=== PATIENT | male | born 1955 | race Caucasian/White ===

== ENCOUNTER 2018-05-12 20:01 | Inpatient (IN) | payer OTHER ==
--- NOTE | 2018-05-12 20:12 | EDPHY ---
H & P Time Seen by Provider: 05/12/18 20:12 Constitutional: Initial Vital Signs Temperature (C) 36.7 C 05/12/18 20:05 Heart Rate 69 05/12/18 20:05 Respiratory Rate 18 05/12/18 20:05 Blood Pressure 149/80 H 05/12/18 20:05 O2 Sat (%) 95 05/12/18 20:05 O2 Delivery Mode Room Air Allergies/Adverse Reactions: Phenothiazines Allergy (Verified 05/12/18 20:24) Home Medications: Medication Instructions Recorded Ascorbic Acid [Vitamin C 500 mg 500 mg PO DAILY 05/13/18 (*)] Gabapentin [Neurontin 100 MG (*)] 100 mg PO BID 05/13/18 Herbals/Supplements -Info Only 1 ea PO DAILY 05/13/18 LORazepam [Ativan (*)] 1 mg PO TID PRN 05/13/18 Morven-3 Fatty Acids [Fish Oil 1000 1,000 mg PO DAILY 05/13/18 mg (*)] buPROPion [Wellbutrin] 100 mg PO DAILY 05/13/18 clonIDINE [Catapres (*)] 0.1 mg PO BID PRN 05/13/18 Medical Decision Making - Diagnostics EKG Interpretation: EKG: Complete interpretation has been separately recorded in the [facility] archive. Summary impression: Sinus rhythm, rate 56, no ischemic changes noted (Aubrey Everett) ED Course/Re-evaluation: CHIEF COMPLAINT: Mental health issues HISTORY OF PRESENT ILLNESS: The patient is a homeless 63 y/o male with longstanding psychiatric history arriving with his family for evaluation of declining mental health. His sister at bedside says he is homeless and is "in a fragile state." She says he's been in a "downward spiral since gi after a Ketamine overdose." He's had frequent suicidal thoughts and had insomnia for at least the last several days. It sounds like he's been off most of his psychiatric medications, stating, "it's bad for me." He says he last took his benzodiazepines 2 days ago. No report of recent trauma or illness. Denies recent ingestions of drugs or alcohol. History comes primarily from his sister. REVIEW OF SYSTEMS: A comprehensive 10 system review of systems is otherwise negative aside from elements mentioned in the history of present illness and medical decision making. PHYSICAL EXAM: HR, BP, O2 Sat, RR. Temp noted General Appearance: Alert, mumbling but able to answer questions, tremulous. Head: Atraumatic without scalp tenderness or obvious injury Eyes: Pupils equal, round, reactive to light and accommodation, EOMI, no trauma , no injection. Nose: Atraumatic, no rhinorrhea, clear. Throat: Mucus membranes moist. Neck: Supple. Respiratory: No retractions, no distress, no wheezes, and no accessory muscle use. Lungs are clear to auscultation bilaterally. Cardiovascular: Regular rate and rhythm, no murmurs, rubs, or gallops. Good capillary refill all extremities. Gastrointestinal: Abdomen is soft, nontender, non-distended, no masses, no rebound, no guarding, no peritoneal signs. Musculoskeletal: Normal active ROM of all extremities, atraumatic. Neurological: Alert, answering questions, and interactive. Nonfocal. Tremulous. Skin: No rashes, good turgor, no nodules on palpation. Past medical history: Bipolar disorder, suicidality Past surgical history: Noncontributory Family history: Noncontributory Social history: Homeless. Family at bedside. Unemployed DIFFERENTIAL DIAGNOSIS: The differential diagnosis for the patient's depression included but was not limited to medication withdrawal, bipolar disorder, functional and major depression, situational depression, medication side effect, drugs, and alcohol abuse. MEDICAL DECISION MAKING: This is a 63 y/o male with a longstanding history of psychiatric illness with acute symptoms worsening since . He abruptly stopped all of his medications sometime in the last few days-weeks. He is currently tremulous and mumbling, but able to answer questions. No visible trauma. Patient appears to be withdrawing as well as in a psychiatric crisis. Plan for standard psychiatric labs and mental health evaluation. Labs unremarkable. Trazodone ordered. Plan for mental health evaluation in morning after he has slept. (Emile Barrios) 0700AM: No acute events overnight. Patient did receive Zyprexa 10 mg times. Plan for mental health evaluation this morning. Patient signed over at 7:[address] Everett. 0656: Patient somewhat yelling in the emergency room appears somewhat agitated. I have ordered the patient 1 mg p.o. Ativan. (Tej Dwyer) Other Provider: I assumed care of the patient at 7:00 a.m. in the morning. The patient was medically cleared for psychiatric evaluation. 2:15 p.m.: The patient has been accepted for inpatient psychiatric hospitalization by Dr. Fried. I have filled out the [facility] transfer form. (Aubrey Everett) 3:45 p.m. the patient got agitated when told that he was going to be admitted to [address] [place] [address]. He said he did not want to go. There is some debate about whether not the the he required admission because he is not on a hold. Mental health workers and Dr. Fried feel that he would benefit from admission and they asked that we give him Ativan to try and help him calm down and then the reassess in about 30 min whether not he can go to [address] [place] [address]. 5:30 p.m. The patient has been placed on an M1 hold written by [facility]. I have signed it. He will be transferred to [address] [place] [address]. (Ean Banda) - Data Points Laboratory Results: Laboratory Results 05/12/18 20:25 05/12/18 20:25 05/13/18 05:11 Urine Opiates Screen NEGATIVE (NEGATIVE) Urine Barbiturates NEGATIVE (NEGATIVE) Ur Phencyclidine Scrn NEGATIVE (NEGATIVE) Ur Amphetamine Screen NEGATIVE (NEGATIVE) U Benzodiazepines Scrn NEGATIVE (NEGATIVE) Urine Cocaine Screen NEGATIVE (NEGATIVE) U Marijuana (THC) Screen NON-NEGATIVE H (NEGATIVE) Medications Given: Discontinued Medications Sodium Chloride (Ns) 1,000 mls @ 0 mls/hr IV EDNOW ONE; Wide Open PRN Reason: Protocol Stop: 05/12/18 20:37 Last Admin: 05/12/18 20:37 Dose: 1,000 mls Sodium Chloride (Ns) 1,000 mls @ 0 mls/hr IV EDNOW ONE; Wide Open PRN Reason: Protocol Stop: 05/12/18 21:40 Last Admin: 05/12/18 21:40 Dose: 1,000 mls Lorazepam (Ativan) 1 mg PO ONCE ONE Stop: 05/13/18 06:49 Last Admin: 05/13/18 07:12 Dose: 1 mg Lorazepam (Ativan) 2 mg PO EDNOW ONE Stop: 05/13/18 15:47 Last Admin: 05/13/18 16:00 Dose: 1 mg Olanzapine (Olanzapine) 10 mg PO ONCE ONE Stop: 05/13/18 02:08 Last Admin: 05/13/18 02:14 Dose: Not Given Olanzapine (Zyprexa Injection) 10 mg IM EDNOW ONE Stop: 05/13/18 02:14 Last Admin: 05/13/18 02:15 Dose: 10 mg Trazodone HCl (Trazodone) 50 mg PO EDNOW ONE Stop: 05/12/18 21:01 Last Admin: 05/12/18 21:12 Dose: 50 mg Trazodone HCl (Trazodone) 50 mg PO EDNOW ONE Stop: 05/12/18 21:37 Last Admin: 05/12/18 22:44 Dose: 50 mg Departure - Departure Disposition: [facility] IP Clinical Impression: Bipolar 1 disorder Condition: Good Referrals: NONE *PRIMARY CARE P,. [Primary Care Provider] - As per Instructions Report Scribed for: Emile Barrios Report Scribed by: Rachel Alcala Date of Report: 05/12/18 Time of Report: 20:13
[2018-05-12] MEDS ORDERED: NS 1,000 ML IV ONE ×2 (20:36→21:39)
[2018-05-12 20:39] LABS: PLATELET COUNT 272 10^3/uL (150-400)
[2018-05-12] MEDS ORDERED: traZODone 50 MG TAB PO ONE ×2 (21:00→21:36)
[2018-05-13] MEDS ORDERED: OLANZapine 5 MG TAB PO ONE (02:07)
[2018-05-13] MEDS ORDERED: OLANZapine 10 MG/2 ML VIAL ONE (02:08)
[2018-05-13] MEDS ORDERED: OLANZapine 10 MG/2 ML VIAL IM ONE (02:13)
[2018-05-13] MEDS ORDERED: LORazepam 1 MG TAB PO ONE ×2 (06:48→15:46)
--- NOTE | 2018-05-13 11:38 | ASMTTLCEVL ---
[facility] Evaluation - Basic Information Evaluation Start Date and 05/13/2018 05:45 AM Time Hospital Status Answers: Voluntary Patient statement Notes: "I can't talk. I'm too tired. I don't know what to tell you. I dont know what's going on. I don't want to go there. I'm hysterical." Narrative Notes: The patient is a 63 y/o male, single, with a hx of Bipolar Disorder. He is homeless and living in [place]. The patient arrived to [facility] ED voluntarily with his sister and friends. He is reportedly "detoxing from Ativan." The patient presented with echolalia and dramatic speech; some observed psychomotor agitation. The patient expressed difficulty participating in the evaluation. He seemed to easily be overwhelmed resulting in hyperventilation. The patient is observed shaking, in a position, and occasionally whimpers. The patient reported that he has not slept for multiple days possibly weeks although he was unable to clarify the duration. According to Tobi, the patient has been staying with Tobi for the past three weeks. He has known the patient for four years. His behavior and daily functioning have deteriorated in the past few months. He has been living in the "back of his car." He has no problem "misrepresenting" and "outright lying." He recently received $100,000 inheritance that he spent within one month; he gave the money to friends and family. He originally started Ativan in the 90's to treat anxiety and reduce thc use. He continues to use thc daily. He suspected that the patient pursued "ketamine" treatment; "possible abuse." He received a 30 day prescription for Gabapentin and Wellbutrin following inpatient hospitalization over in [place]; since ceased. According to Cullen, the patient was experimenting with an anti-addiction treatment via [employer], "Kambo;" which includes a ritual practice. 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 He was presenting as delusion, incoherent, and psychotic at the time of the hospital admission. The patient drove himself to [place] to have dinner with his sister; "he was crying, whimpering, agitated, stating that 'he was going to end it all. This will be the last time I see you.'" Diagnosis History Notes: The patient has a diagnostic hx of Bipolar Disorder. Prior suicide attempts Notes: The patient reported that he tried to "hang" himself at 23 y/o. Prior hospitalizations Notes: The patient endorsed previous hospitalizations although he was unable to elaborate. According to Tobi, he was hospitalized in [place] over . Treatment Responses Notes: Unable to assess History of violence Notes: The patient denied any homicidal ideation or previous hx of violence. Therapist: Magdalena Park Psychiatrist: None Medications (name, dosage, route, freq uency) Notes: None Allergies/Reaction Notes: No known allergies Sleep Notes: The patient reported that he has not slept for multiple days possibly weeks although he was unable to clarify the duration. Appetite Notes: The patient yelled, "STOP IT." Medical/Surgical history Notes: The patient's medical/surgical hx is unknown. Substance use history (frequency, intensity, his tory, duration) Notes: The patient's substance use hx is unknown. Family composition Notes: The patient's family composition is unknown. He came to the [facility] ED voluntarily accompanied by his sister, Cullen Sánchez. Need for family Answers: Yes participation in patient's care Family psychiatric/substance abuse history Notes: The patient's family psychiatric/substance abuse hx is unknown. Developmental history Notes: The patient's developmental hx is unknown. Abuse concerns Answers: None Marital status/children Notes: The patient is "single without children." Living situation Notes: The patient is "homeless;" most recently living in "[place]." According to Tobi, he was "kicked out" of his apartment in early March. Sexual history/orientation Notes: The patient's sexual hx is unknown. Peer support/family strengths Notes: The patient's peer support/family strengths are unknown. Education level/history Notes: The patient's education hx is unknown. Work history Notes: The patient's work hx unknown. Notes: no known affiliation Legal Notes: The patient's legal hx unknown. Religion/Spiritual Notes: The patient reported none that would interfere with treatment. Leisure Notes: The patient's leisure activity is unknown. Collateral Notes: The collateral data was obtained from current and previous [facility] ed records/staff, and friends: Tobi, and family members: Cullen Sánchez. Patient's strengths Answers: Good Friend to Others (Please select at least TWO strengths): Supportive Family TLC Evaluation - Mental Status Exam Appearance: Answers: Unclean Unkempt Eye Contact: Answers: Avoiding Mood: Answers: Elevated Irritable Labile Affect: Answers: Anxious Fearful Guarded Nervous Behavior: Answers: Appropriate Cooperative Anxious Fearful Restless Speech: Answers: Relevant Logical Clear Dramatic Perseverating Pressured Thought Process: Answers: Organized Oriented Insight: Answers: Poor Judgement: Answers: Fair Manic Signs/Symptoms Answers: Distractibility Impulsivity Irritability Pressured Speech Spending Sprees Depression Answers: Hopelessness Signs/Symptoms: Anxiety Signs/Symptoms Answers: Generalized Anxiety Hallucinations: Answers: None Current Stage of Change Answers: Precontemplation Pt reported to have Answers: No suicidal/self-injuring ideation/behavior? Pt reported to be making Answers: No suicidal/self-injuring threats? Pt reported to have Answers: No aggression/assault ideation/behavior? Pt exhibits inability to Answers: No care for self/grave disability? Ideation/behavior is Answers: No chronic? Patient has a specific Answers: No plan? Pt has access to means to Answers: No execute the plan? Ideation involves Answers: No serious/lethal intent? Ideation has Answers: No delusional/hallucinatory content? History of Answers: Yes suicidal/self-injuring ideation, behavior, or threats? History of Answers: No aggressive/assaultive ideation, behavior, or threats? History of serious Answers: No physical harm to self/others while in treatment setting? [facility] Evaluation - Suicide/Homicide Risk Suicide Risk Factors: Answers: < 20 or > 40 Years of Age Alcohol/Heavy Drug Use Anxiety/Panic, Severe Bipolar Disorder Financial Difficulties Prior Suicide Attempt(s) Recent of Loved One Single Unstable Living Situation Homicide/violence risk Answers: Heavy Drug Use factors: Current Suicidal Answers: No Ideation? Current Suicidal Ideation Answers: Yes in the Past 48 Hours? Current Suicidal Ideation Answers: Yes in the Past Month? Suicide Internal Answers: Absence of Psychosis Protective Factors: Suicide External Answers: Positive Therapeutic Protective Factors: Relationships Social Support Ranking of patient's Answers: Low suicidal risk: Ranking of patient's Answers: Low homicidal risk: TLC Evaluation - Wrap-up BDI Total Score: N/A BDI Question #2 Score: N/A BDI Question #9 Score: N/A BSS Total Score: N/A AXIS I Diagnosis (include DSM-V and ICD-10 codes), must also be entered in [employer], which is the source of truth. Notes: Bipolar I Disorder, severe 296.43 (F31.13) Cannabis Use Disorder, severe 304.30 (F12.20) Evaluation End Date and 05/13/2018 11:30 AM Time (HH:MM): Date Signed: 05/13/2018 11:38 AM Electronically Signed By:Maribel Hannon
--- NOTE | 2018-05-13 14:12 | CPEKG ---
Test Reason : OPEN Blood Pressure : / mmHG Vent. Rate : 056 BPM Atrial Rate : 055 BPM P-R Int : 147 ms QRS Dur : 110 ms QT Int : 437 ms P-R-T Axes : 074 -64 036 degrees QTc Int : 422 ms Sinus rhythm Incomplete RBBB and LAFB Confirmed by Aubrey Everett ([id number]) on 05/13/2018 2:11:47 PM Referred By: Aubrey Everett Confirmed By:Aubrey Everett
[2018-05-13] MEDS ORDERED: buPROPion 100 MG TAB PO ONE (18:02)
[2018-05-13] MEDS ORDERED: GABAPENTIN 100 MG CAP PO ONE (18:02)
[2018-05-13] MEDS ORDERED: OLANZapine DISINTEGR 5 MG TAB PO PRN (21:16)
[2018-05-13] MEDS ORDERED: MELATONIN 3 MG TAB PO PRN (21:18)
[2018-05-13] MEDS ORDERED: MAG HYDROX/AL HYDROX/SIMETH 30 ML UDCUP PO PRN (21:19)
[2018-05-13] MEDS ORDERED: MAGNESIUM HYDROXIDE 30 ML UDCUP PO PRN (21:22)
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
[2018-05-14] MEDS: amLODIPine BESYLATE 5 MG TAB PO SCH (11:27)
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
--- NOTE | 2018-05-14 13:44 | ASMTCMCOM ---
CM Note CM Note Notes: Pt. and CC completed MTP, signed and placed in pt's chart. Pt. stated he does not want to return to living with Tobi in [facility]. Pt. stated he would prefer to live in [place] where it is more affordable. Pt. stated he has a "history of self medicating". Pt. stated he tried to "re-imprint self, unsuccessfully". Pt. stated he "felt great" while using Kambo. Pt. reports ketimine helping, but added it was over prescribed which caused him to overdoes on it. Pt. stated a former student, Roz, got into contact with him and he loaned her $40,000, which she has not offered to pay back. Pt. stated he does not want Roz discussing his treatment with the staff, but stated he doesn't mind talking to her. Pt. stated THC is "only thing that seems to calm me down", adding he has "been trying to get off it". Pt. reports feeling "ashamed" after he "squandered my mother's inheritance". Pt. stated he is the "black sheep of the family". Pt. stated he has been on disability since 1996. Pt. reports being "a complete wreck" when not using THC, and stated he "does well" when smoking THC. Pt. stated he "don't want to continue smoking pot" adding he would like a prescription for THC and CBD medications, which "will alleviate me from chronic smoking". Pt. has questions about being diagnosed with ketamine included psychosis, CC referred pt to speak with MD about. Pt. stated he has an EMDR therapist but does not want to continue working with her. Pt. reports seeing ASBEST[facility] HANDLER Anat Aaron at her [place] location. Pt. presents as alert, worried, tangential, lacking eye contact, easily distracted, apologizing often, and mostly cooperative. Staff report pt. sleeping 8 hours and refusing to take prescribed medication from hospitalist without his sister reviewing the medications. Date Signed: 05/14/2018 01:43 PM Electronically Signed By:Silvana Rader
[2018-05-14] MEDS: LORazepam 1 MG TAB PO PRN (16:44)
[2018-05-14] MEDS: GABAPENTIN 300 MG CAP PO SCH (20:57)
[2018-05-14] MEDS: MIRTAZAPINE 15 MG TAB PO SCH (20:57)
[2018-05-14] MEDS: NICOTINE POLACRILEX 2 MG GUM B PRN (20:57)
--- NOTE | 2018-05-15 03:43 | BAPA ---
[f rep st] ADMISSION PSYCHIATRIC ASSESSMENT CHIEF COMPLAINT: "I was detoxing from Ativan... I thought I was voluntary, but then they put me on a 72-hour hold because of something I said the day before... " HISTORY OF PRESENT ILLNESS: The patient is a 63-year-old male with a reported history of bipolar disorder, although the patient maintains he has been diagnosed with posttraumatic stress disorder and depression, also benzodiazepine addiction. He also endorses a long history of THC addiction and use of multiple different prescribed alternative treatments to treat his anxiety and addiction, including prescribed ketamine a few months ago, more recently an Amazonian frog toxin, kambo. He was brought to the [facility] ED voluntarily by his sister and her friend. This was after he had been up all night and not sleeping well for the last several days, drove from [place] to visit his sister who came from out of town to look at property in [place]. He met with her for dinner, did not look well psychologically, reported "detoxing from Ativan," and made a suicidal statement. Sister told the ED physician that he was homeless and "in a fragile state," feeling he had been in a "downward spiral since Thanksgiving after a ketamine overdose." He had reported last taking benzodiazepines 2 days prior and was not on any psychiatric medications. Per TLC evaluation, he was noted with dramatic speech, psychomotor agitation, echolalia, easily overwhelmed during interview, which would lead to hyperventilation, whimpering sounds, shaking, and curling into a position. He reported he had not slept for multiple days. Presently, he reports "I am hurting all over, my mind, but my body is following suit. I feel very contracted. I feel very, very depressed right now. My sister said I looked better today after her visit earlier this morning. The patient reports "I feel very anxious right now. P.r.n. Ativan was given 1 mg during interview and patient did notably calm as interview progressed. Collateral per TLC report indicated after becoming homeless and living in his car, he was most recently staying for 3 weeks with a friend Tobi, who had known him for 4 years who lives in [place]. Tobi indicated patient recently received a $100,000 inheritance that was spent down fairly quickly including giving money to other friends and family. Additional collateral from sister, Cullen, included that she knew the patient to be experimenting with an anti-addiction treatment prescribed by a practitioner in [place] and derived from an Amazon frog toxin and was "kambo." She became concerned when he did not look well during dinner, crying, whimpering, agitated , and stating to her that he was going to "end it all, this will be the last time I see you." Upon being asked what he felt led to his current hospitalization, the patient responded that he was homeless, addison, a friend in [place] called her friend Tobi in [place] to take me in, "but they thought I was not sleeping, I was trying to taper off Ativan at his house." In the ED, he did receive Zyprexa 10 mg IM, also trazodone, and Ativan 2mg. He remained in the ED on a voluntary basis for most of the day, until due to concerns for his ability to care for self in regressed functioning state and his recent verbalization of suicidal thoughts, prior to transfer to [address] [place] [address] he was placed on an M1 hold for danger to self and grave disability after collateral was obtained, although, patient does not feel he needs to be psychiatrically hospitalized. He was given in the ER a dose of Wellbutrin 100 mg and gabapentin 100 mg apparently because his sister reported he did better with this medication following most recent hospitalization. But it was not clear that he was compliant with this medication. The patient is not able to state what medicines over the years have actually been helpful for any of his symptoms psychiatrically. He reports all SSRIs cause agitation, Zyprexa "made me crazy." Other antipsychotics were not tolerated or effective, lithium caused him to be unable to walk and there were side effects with numerous other medications, psychotics, mood stabilizers, and antidepressants. He did recall that Suboxone was helpful and marijuana. Regarding medication options for current hospital stay, he agreed to gabapentin for anxiety. He stated in the past that he was given injectable medications while hospitalized because when he gets withdrawal symptoms, they needed to give him "a hypodermic injection" because of symptoms such as "I get vocal with animal sounds." PRIOR PSYCHIATRIC HISTORY: Patient did endorse previous mental health hospitalizations, which seemed to be several as his history progressed and he became more comfortable with interview. He reports first psychiatric hospitalization in [place] for depression and suicidal ideation. He states at that time he was living in parent's basement following college, smoking THC, and related to a relationship he abstained from THC, she broke up with him, "I shut down." He became very depressed and tried to hang himself in a museum at age 23 in 1978. Thereafter he was hospitalized at [facility] for 2 weeks, then at [facility] for 6 months under " constant observation." Once he got day passes 2-1/2 months into his hospital stay, he began using THC , which "cured" him and he improved, while cheeking his medication Norpramin. He reports having hospitalizations in [place], [place], where he lived when he was in the . There, he was diagnosed with posttraumatic stress disorder, depression, anxiety. He was also admitted to rehab facilities for benzodiazepine addition a handful of times over the course of his life including in 1995 when he reports experiencing withdrawal seizure, but was then told they were "psychogenic seizures". He received ECT at [facility] in 2002, which he did not feel was helpful. Most recently, he was hospitalized when visiting family in [place] over , and diagnosed with ketamine-induced psychosis.There may have been a subsequent admission from which he reports being discharged 04/17/18 on gabapentin and Wellbutrin. During last admission, he recalled receiving IM Haldol and Benadryl because "staff may have felt threatened by my complaining." He also indicates en route to [place] to visit family he missed his flight by "30 seconds" became upset, Security was involved, and he was given another flight the next day, which stopped in [place] en route to [place], [place]. At this point, "the FBI detained me" and questioned him, he was not sure why, but ultimately was released and told not to fly [facility] any longer. He denied any other suicide attempts besides the hanging attempt as noted. There is no reported history of harm to others. He has also received psychiatric treatment in the [place] area. He states after a friend recommended he try Kratom, "a mild opiate analgesic," which he felt decreased his cognitive abilities, he tried to get himself off this in December 2017 after 1-2 years and a nurse practitioner prescribed him clonidine and Ativan to help with withdrawal. He also reported feeling depressed with suicidal ideation and later was prescribed nasal ketamine, "$195 a month," which he alleges he used as prescribed because he felt disassociated if he overused. Apparently this led to subsequent hospitalization over [facility] in [place]. Patient also reports having worked with an EMDR therapist, Heena Fried, in [place] a couple of years ago, which he found helpful. Recently he was seeing a [place] [facility] [place] was treating him with dried frog venom in December 2017. SUBSTANCE USE HISTORY: As noted above, patient identifies marijuana as the most helpful substance for all symptoms. Also LSD which he last used 2.5 years ago. States he moved to [place] 7 years ago to start on medical marijuana. He denied history of cocaine, heroin, methamphetamine, or any history of IV drug use. Narcotic use was only if prescribed following a dental procedure or other. He did admit to using kratom in the past, and wondered whether Suboxone could be helpful for him presently. He describes a long history of benzodiazepine addiction, he reports due to prescribers insisting he restart a benzodiazepine for his anxiety symptoms. He recalls starting THC when young and father giving him Valium sometimes. He reports many times trying to taper off THC and most recently was prescribed clonidine and Ativan to help him. Overall states THC has been most helpful for calming all of his symptoms. The patient reports "the best treatment to make me feel whole and make my brain firing on all cylinders" was LSD, last used 2.5 years ago. SOCIAL HISTORY: Patient reports childhood trauma related to issues with his parent, states father at age 32 of an aneurysm, mother went into shock, and remarried eventually to a "rage-aholic." He states he "grew up feeling inferior, always frightened, masochistic..." He stated in [place] in the he was told he had PTSD and that his childhood trauma was a set up for addiction. He met his apparently while at or on a pass from the [facility] in the , he was her 5th . They were until her of non- Hodgkin's lymphoma in 2005. He moved from [place] to [place] with her. He has one grown daughter, age 37, who lives in [place] and they have occasional contact. Daughter is on Lexapro and smokes THC, but apparently is doing well as a technical assoc. The patient reports he graduated college in [place] in art history and language. 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 He often referred to the as a good period of functioning for him. He presently feels his sister, Cullen, is his best support. He has other siblings and there have been issues and conflicts regarding parents and inheritance. Regarding loss of his mother 2 years ago, he reported feeling sisters "let her go" after her massive stroke. Patient feels this was a significant loss for him emotionally. He did report a visit to [facility] by [facility] after Thanksgiving recently, experienced a "meltdown" where he allegedly wanted to be with his mother, although denied any plan or intent to harm himself. He did admit feeling a "longing for my mother who was unconditionally loving." He acknowledges overall being more depressed since that time, but also did spend down his inheritance fairly rapidly over the last several months and now is homeless. He had been living in [place] for 5 years renting a room in a sikhism community which had numerous cooking restrictions. Apparently he did not follow these cooking restrictions and they attempted to evict him. He was successful several times fighting this in court until he was eventually evicted in July of 2017. He then stayed in a hotel in [facility] for 4-5 months, but then was kicked out after drawing on the wall with Bonita color and cooking on the floor. He then moved to a hotel, [employer], in [place] in February 2018, still using mother's inheritance, but then when he ran out and a friend whom he loaned $40,000 was not able to pay him back, he felt he was "scammed" by his friend, and has been homeless since. He admits concern about staying in a custodial, and does report his family members have resources. PAST FAMILY/PSYCHIATRIC HISTORY: Reports a sister with anxiety. Other family psychiatric/substance history details not known. Mother in February 2016 at age 88 of complications from a stroke. Father at age 32 of an aneurysm. MENTAL STATUS EXAMINATION: The patient was casually neatly dressed with shoulder length salinas hair and round glasses, wearing a vest. He was noted walking up and down the hallway fairly calmly. Upon start of interview, he was sitting and remained seated throughout interview, but a leg was bouncing, a foot was shaking in an anxious manner. Tone of voice was somewhat anxious and halting. Patient was with slightly increased rate of speech, kept complaining of feeling very contracted, depressed, and anxious. Speech was initially slowed, slightly sluggish, At one point it seemed he had mild oral dystonia perhaps from neuroleptics received in ED; however, RN did offer him 1 mg lorazepam as p.r.n. which he accepted and over the course of the interview, he became visibly more relaxed and less tense, with normal articulation, with normal volume and rate speech. Affect was fairly controlled, restricted, dysphoric, and anxious initially, but again, more engaged, full and euthymic as interview progressed. He also notably became more engaging with good eye contact as he described at length the effect of the Amazonian frog toxin on his lymphatic system and its purported benefit. 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 Thought processes were very overinclusive with his responses and felt more as ease throughout interview as he was allowed to share his story and his history. There was no evidence of delusional thoughts. No paranoia. He denied any auditory or visual hallucinations or any suicidal thoughts or thoughts to harm others. He denied feeling hopeless, although did endorse feeling worthless and helpless, depressed and anxious. There were some recurring themes of long-standing emotional trauma and anxiety, missing his mother, and the eternal search for something that will help rewire his reported traumatized system. Insight and judgment were impaired. Patient seems of above-average intelligence. He was cognitively intact conversationally. He however does feel that his memory is not as good as it used to be. IMPRESSION: The patient is a 63-year-old male with reported history of bipolar, although, patient reports his issues have been primarily PTSD, depression, and anxiety, and he acknowledges a long history of substance use, primarily benzodiazepine, but also cannabis dependence, and admits experimentation with multiple alternative drug treatment that have been prescribed. He was brought in by his sister for suicidal ideation and anxiety presumed related to benzodiazepine withdrawal. According to his self report, he has had numerous recent psychosocial stressors, including financial, homelessness, recent anniversary of mother's , and he has been recently with increased regressed behaviors and poor coping strategies, poor sleep, depression, anxiety, substance use, as well as apparent underlying personality disorder. The patient seems to have primary complaints of depression and anxiety, but also with decreased sleep and recent substance use. Collateral conveyed to TLC tile sorter reported he had no problem "misrepresenting" and "outright lying." He did not hesitate to state he was not planning to abstaining from THC as he finds this most helpful for all symptoms. Yet he expresses desire to continue seeking alternative treatments to help with anxiety and history of trauma ( which was vague). He did not feel he needed to be hospitalized, but agrees to cooperate in with assessments and treatment recommendations, reporting his goal was to try and "feel better" in order to be able to return to some type of meaningful work and find a place to live. DIAGNOSIS: Unspecified bipolar spectrum disorder, rule out bipolar disorder with mixed features; unspecified anxiety disorder; cannabis use disorder severe ; posttraumatic stress disorder by history; anxiolytic use disorder severe; rule out other specified substance use disorder; history of ketamine induced psychosis; rule out personality disorder, unspecified (with cluster C traits). PLAN: Admit to [address] [place] [address] on M1. The patient denied any thoughts to harm self or others. He is on safety precautions. No indication for suicide precaution. Although the patient reported suicidal ideation prior to admission, he consistently reported no thoughts to harm self or intent to harm self. Monitor vital signs every shift with p.r.n. lorazepam for any symptoms of benzodiazepine withdrawal, although none have been clearly noted. No clear indication for placement on CIWA at this time. Will not continue with Wellbutrin as given in the emergency department as this medication is not clearly indicated. Discussed options with the patient including for anxiety. Patient refused to consider any other medications for anxiety except was most agreeable to continuing with gabapentin, so this was prescribed 300 mg p.o. t.i.d. He did report having taken more in the past. Regarding his mood, he declined offer of any antipsychotics or mood stabilizers , also of any SSRIs. He was most amenable to low-dose mirtazapine for sleep and mood, so this was started at 15 mg p.o. at bedtime. It is not entirely clear if he has bipolar mood disorder with any manic or hypomanic symptoms outside of his extensive substance use history. We will need to obtain more collateral to further clarify. The patient seemed to be directing his own treatment in the community and has an extensive experience with multiple treatment modalities and treatment settings for psychiatric symptoms; this includes ECT and EMDR. He has been hospitalized several times for substance use and psychiatric illness, but it seems psychiatric symptoms are often related to his substance use. Would be beneficial to obtain hospital records from at least most recent hospitalizations in [place]. Of note, there seems to be a strong personality disorder component. The patient self identifies as having chronic feelings of inadequacy and has features of cluster C avoidant and perhaps also some cluster B histrionic features. He does not seem invested in any traditional psychiatric treatments, therefore anticipate this to be a brief hospital stay to primarily ensure patient is stable clinically, safe, and has a good disposition planning with followup and resources. He is currently homeless and isn't clear as to whether he plans to stay in the [facility] or return to the [facility]. Continue to monitor safety on the unit and encourage group attendance and participation in therapeutic milieu. Obtain more collateral from siblings and most recent outpatient therapist and prescriber as well. /[id number]/MODL [id number]
[2018-05-15] MEDS: LORazepam 1 MG TAB PO PRN (06:45)
--- NOTE | 2018-05-15 08:43 | SOAPPROG ---
SOAP Progress Note Assessment/Plan: Assessment: Major Depressive Disorder with Anxious Distress, Cannabis Use Disorder, Severe. No improvement noted. (see subjective/objective note). Patient could benefit from continued inpatient hospitalization for crisis stabilization, safety, and medication evaluation. Plan: 1. Psychotropic medications: After reviewing options, risks, and benefits patient agrees to continue current medications. No other medication changes at this time as more time is needed to determine ongoing tolerability and efficacy. Plan is to continue to observe patient for response and side effects from medications, and ongoing monitoring and evaluation. 2. Review with patient informed consent and recommendations for psychotropic medication treatment listed below 3. Labs: no additional labs at this time 4. Therapy: continue milieu and group therapy 5. Further investigation including gathering information from patients relatives and review of past case records to inform treatment plan. 6. Safety/Wellness plan and follow-up outpatient appointments to be established prior to discharge. Next steps are for patient to meet with ostomy care nurse to plan a safe discharge plan and establish outpatient services for ongoing treatment. 7. Confer with inpatient treatment team regarding treatment plan. 8. Psychosocial stressors addressed through manager of case 9. Legal status: M1 10. Consider discharge when patient is in stable condition, safe, and has a safe discharge plan. 11. Substance abuse intervention: cannabis PSYCHOTROPIC MEDICATION TREATMENT INFORMED CONSENT and RECOMMENDATIONS: Review nature of condition, diagnosis, and prognosis. Review nature and purpose of psychotropic medication treatment. Review type of psychotropic medications being ordered. Review risk and benefits of psychotropic medication treatment. Review probable length of time patient will need to take medications. Review risk and benefits of not undergoing psychotropic medication treatment. Review alternative treatments to psychotropic medications. Review psychotropic medications contraindications, drug-drug interactions, side effects, and importance of reporting any side effects to a psychiatric provider or nurse during inpatient hospitalization, and upon discharge to patients psychiatric outpatient provider, primary care provider, or other health care director. Review importance of asking a nurse, psychiatric provider, or primary care provider any questions or problems concerning the psychotropic medications. Verify patient understands the information that has been provided, and understands, accepts, and agrees to psychotropic medications. Review patients safety plan and importance of patient to report to staff while hospitalized if patient is ever a danger to self/others, or unable to care for self, and upon discharge, the importance for patient to contact [facility] or [facility], or go to the nearest emergency room, if patient is ever a danger to self/others, or unable to care for self. Recommend that upon discharge patient establish medication management treatment with a psychiatric provider, establishes routine therapy appointments, and follow-up with primary care provider. Verify patient understands and agrees to these recommendations. 05/15/18 08:45 Subjective: Following up with patient for evaluation of depression, anxiety, and safety. Patient reports, "Not going too good, high anxiety." Patient expresses the following psychiatric symptoms severe anxiety; reports anxious about getting better, living safely somewhere. Patient reports taking medications as prescribed, and describes response to medications as good. Patient does not report undesirable side effects from the medications, and agrees to continue current medications. Patient reports he slept okay last night, and reports feeling rested. Patient reports he does not know where he will go when he discharges from hospital. Objective: Vital Signs Temp Pulse Resp BP Pulse Ox 36.5 C 73 20 158/93 H 96 05/15/18 06:40 05/15/18 06:40 05/15/18 06:40 05/15/18 06:40 05/15/18 06:40 NURSING REPORT: Consulted with nursing for update on patients progress in treatment. Nurses report patient is engaged in treatment, is attending groups, slept 8 hours, expresses the following psychiatric symptoms: anxiety and depression, exhibits the following psychiatric symptoms: anxious; is eating all meals, is agreeable to medications and taking as prescribed with no report of side effects, with no s/s of EPS/akathisia, and denies SI/HI, denies A/V hallucinations, and denies delusions. SUBSTANCE ABUSE BRIEF INTERVENTION: Brief intervention regarding the risks of cannabis abuse is provided to patient with goal to reduce the risk of harm that could result from the continued use of cannabis, with the general aim to investigate the problem, raise awareness of problem, develop a solution with the patient, recommend a specific change or activity, and motivate the patient toward change. Assess substance abuse behavior and give supportive advice about harm reduction, recommend a reduction in hazardous/at-risk consumption patterns, and facilitate referrals for additional specialized treatment with hemodialysis patient care specialist. Intermediate goal is for the patient to quit and attend outpatient substance abuse treatment. Intervention focus on intermediate goals to allow for more immediate success in the treatment process to keep the patient motivated. Review following with patient: Cannabis use risks: Short- term use: impaired short-term memory, impaired motor coordination, altered judgement, in high doses paranoia and psychosis. Long-term use addiction, diminished life satisfaction and achievement, symptoms of chronic bronchitis, and increased risk of chronic psychosis disorders if predisposition to such disorders. In withdrawal anger, aggression irritability, anxiety and nervousness, decreased appetite or weight loss, restlessness, and sleep difficulties with strange dreams. OUTPATIENT SUBSTANCE ABUSE TREATMENT: Patient referred to outpatient provider and treatment for continued treatment related to substance abuse. MSE: The patient is an under-nourished male looking older than stated chronological age. Attire is appropriate and dress is casual. Grooming status is inappropriate and disheveled. Ambulation is independent. Gait is normal and coordinated. Posture is normal and relaxed. Eye contact is inappropriate and avoided. Motor activity is appropriate with purposeful, organized, coordinated movements; with no involuntary movements. Attitude is fairly cooperative. Patient appears attentive and does relate well to this interviewer. Language production is spontaneous. Rate is hesitant, latency of response is prolonged, volume is low. Amount is sparse. Articulation is clear. Patient reports mood as okay with incongruent and anxious affect. Patients thought process is linear with no signs of thought disorder. Patient denies suicidal thoughts, denies homicidal ideation. Patient denies auditory, visual hallucinations. Patient denies delusions. Patient does not appear to be attending to internal stimuli. Patients attention and concentration are fair. Patient is oriented to person, place, time. Patients insight and judgment are poor, and appears to be a fair historian. Patient has no apparent dysfunction in recent or remote memory noted, and no evidence of gross cognitive dysfunction noted at any point during the interview. - Time Spent With Patient Time Spent With Patient: 15 minutes, met with patient individually. - Pending Discharge Pending Discharge Within 24 Hours: No Pending Discharge Within 48 Hours: No ICD10 Worksheet Patient Problems: Problems Problem Status Onset Bipolar 1 disorder Acute
[2018-05-15] MEDS: GABAPENTIN 300 MG CAP PO SCH ×3 (08:48→20:56)
[2018-05-15] MEDS: amLODIPine BESYLATE 5 MG TAB PO SCH (09:29)
--- NOTE | 2018-05-15 09:46 | PDMN ---
Medical Necessity [place] [facility] [id number], Adult: Inpatient Care: 63 yo w / unspecified bipolar spectrum d/o, r/o bipolar w/ mixed features, unspecified anxiety d/o, cannabis use d/o, severe, PTSD by hx, anxiolytic use d/o, severe, other specified substance use d/o, hx of ketamine induced psychosis, personality d/o, unspecified w/ cluster C traits. Admit to behavioral lauro unit.
--- NOTE | 2018-05-15 12:55 | ASMTCMCOM ---
CM Note CM Note Notes: Pt. reports feeling "not well". Pt. stated he "woke up panicky and anxiety ridden". Pt. stated he slept "okay", adding he "feels strange". Pt. stated he feels as though "my brain is like a vacuum drycleaner". Pt. stated "strange feeling is from taking Remeron. Pt. denied any other medications issues. Pt. reports getting enough to eat and attending groups. Pt. denied SI, HI, and AVH. Pt. reports feeling scared about "just afraid of calling people and talking to people". Pt. reports paranoia "about my imrovement". Pt. presents as alert, distressed, lacking eye contact, soft spoken, whimpering, and mostly cooperative. Staff report pt. sleeping 9.5 hours and being medication compliant. Pt. signed PATRICK for therapist in [place]. CC to determine pt's length of stay and then schedule follow up appointment. Date Signed: 05/15/2018 12:55 PM Electronically Signed By:Silvana Rader
[2018-05-15] MEDS: CHOLECALCIFEROL VIT D3 2,000 UNITS TAB/CAP PO SCH (16:14)
[2018-05-15] MEDS: MIRTAZAPINE 15 MG TAB PO SCH (20:56)
[2018-05-16] MEDS: GABAPENTIN 300 MG CAP PO SCH ×3 (07:50→21:11)
[2018-05-16] MEDS: LORazepam 1 MG TAB PO PRN (07:50)
[2018-05-16] MEDS: amLODIPine BESYLATE 5 MG TAB PO SCH (07:50)
[2018-05-16] MEDS: CHOLECALCIFEROL VIT D3 2,000 UNITS TAB/CAP PO SCH (07:51)
[2018-05-16] MEDS ORDERED: GABAPENTIN 300 MG CAP PO SCH (08:06)
[2018-05-16] MEDS ORDERED: GABAPENTIN 300 MG CAP PO ONE (08:15)
--- NOTE | 2018-05-16 08:15 | SOAPPROG ---
SOAP Progress Note Assessment/Plan: Assessment: Major Depressive Disorder with Anxious Distress, Cannabis Use Disorder, Severe. No improvement noted. (see subjective/objective note). Patient could benefit from continued inpatient hospitalization for crisis stabilization, safety, and medication evaluation. Plan: 1. Psychotropic medications: After reviewing options, risks, and benefits patient agrees to continue current medications and increase Gabapentin to 600 mg po TID. No other medication changes at this time as more time is needed to determine ongoing tolerability and efficacy. Plan is to continue to observe patient for response and side effects from medications, and ongoing monitoring and evaluation. 2. Review with patient informed consent and recommendations for psychotropic medication treatment listed below 3. Labs: no additional labs at this time 4. Therapy: continue milieu and group therapy 5. Further investigation including gathering information from patients relatives and review of past case records to inform treatment plan. 6. Safety/Wellness plan and follow-up outpatient appointments to be established prior to discharge. Next steps are for patient to meet with health care liaison to plan a safe discharge plan and establish outpatient services for ongoing treatment. 7. Confer with inpatient treatment team regarding treatment plan. 8. Psychosocial stressors addressed through shoe parts caser 9. Legal status: M1 10. Consider discharge when patient is in stable condition, safe, and has a safe discharge plan. 11. Substance abuse intervention: cannabis PSYCHOTROPIC MEDICATION TREATMENT INFORMED CONSENT and RECOMMENDATIONS: Review nature of condition, diagnosis, and prognosis. Review nature and purpose of psychotropic medication treatment. Review type of psychotropic medications being ordered. Review risk and benefits of psychotropic medication treatment. Review probable length of time patient will need to take medications. Review risk and benefits of not undergoing psychotropic medication treatment. Review alternative treatments to psychotropic medications. Review psychotropic medications contraindications, drug-drug interactions, side effects, and importance of reporting any side effects to a psychiatric provider or nurse during inpatient hospitalization, and upon discharge to patients psychiatric outpatient provider, primary care provider, or other health personal care assistant. Review importance of asking a nurse, psychiatric provider, or primary care provider any questions or problems concerning the psychotropic medications. Verify patient understands the information that has been provided, and understands, accepts, and agrees to psychotropic medications. Review patients safety plan and importance of patient to report to staff while hospitalized if patient is ever a danger to self/others, or unable to care for self, and upon discharge, the importance for patient to contact [facility] or [facility], or go to the nearest emergency room, if patient is ever a danger to self/others, or unable to care for self. Recommend that upon discharge patient establish medication management treatment with a psychiatric provider, establishes routine therapy appointments, and follow-up with primary care provider. Verify patient understands and agrees to these recommendations. 05/16/18 08:15 Subjective: Following up with patient for evaluation of depression, anxiety, and safety. Patient reports, "Don't feel well. Don't want to live like this anymore, don't want to go on like this." Patient expresses the following psychiatric symptoms severe anxiety. Patient reports taking medications as prescribed, and describes response to medications as "Remeron puts me to sleep. Still feel anxious during the day." Patient does not report undesirable side effects from the medications, and agrees to continue current medications. Patient agrees to increase Gabapentin to 600 mg TID. Patient reports he slept okay last night, and reports feeling rested. Patient reports he does not know where he will go when he discharges from hospital. Objective: Vital Signs Temp Pulse Resp BP Pulse Ox 36.3 C 65 20 149/75 H 97 05/16/18 06:00 05/16/18 06:00 05/15/18 06:40 05/16/18 07:50 05/16/18 06:00 NURSING REPORT: Consulted with nursing for update on patients progress in treatment. Nurses report patient is engaged in treatment, is attending groups, slept 8 hours, expresses the following psychiatric symptoms: anxiety and depression, exhibits the following psychiatric symptoms: depressed with flat affect; is eating all meals, is agreeable to medications and taking as prescribed with no report of side effects, with no s/s of EPS/akathisia, and denies SI/HI, denies A/V hallucinations, and denies delusions. SUBSTANCE ABUSE BRIEF INTERVENTION: Brief intervention regarding the risks of cannabis abuse is provided to patient with goal to reduce the risk of harm that could result from the continued use of cannabis, with the general aim to investigate the problem, raise awareness of problem, develop a solution with the patient, recommend a specific change or activity, and motivate the patient toward change. Assess substance abuse behavior and give supportive advice about harm reduction, recommend a reduction in hazardous/at-risk consumption patterns, and facilitate referrals for additional specialized treatment with medicare nurse. Intermediate goal is for the patient to quit and attend outpatient substance abuse treatment. Intervention focus on intermediate goals to allow for more immediate success in the treatment process to keep the patient motivated. Review following with patient: Cannabis use risks: Short- term use: impaired short-term memory, impaired motor coordination, altered judgement, in high doses paranoia and psychosis. Long-term use addiction, diminished life satisfaction and achievement, symptoms of chronic bronchitis, and increased risk of chronic psychosis disorders if predisposition to such disorders. In withdrawal anger, aggression irritability, anxiety and nervousness, decreased appetite or weight loss, restlessness, and sleep difficulties with strange dreams. OUTPATIENT SUBSTANCE ABUSE TREATMENT: Patient referred to outpatient provider and treatment for continued treatment related to substance abuse. MSE: The patient is an under-nourished male looking stated chronological age. Attire is appropriate and dress is casual. Grooming status is inappropriate and disheveled. Ambulation is independent. Gait is normal and coordinated. Posture is normal and relaxed. Eye contact is inappropriate and avoided. Motor activity is appropriate with purposeful, organized, coordinated movements ; with no involuntary movements. Attitude is fairly cooperative. Patient appears attentive and does relate well to this interviewer. Language production is spontaneous. Rate is hesitant, latency of response is prolonged, volume is low. Amount is sparse. Articulation is clear. Patient reports mood as okay with incongruent and flat affect. Patients thought process is linear with no signs of thought disorder. Patient denies suicidal thoughts, denies homicidal ideation. Patient denies auditory, visual hallucinations. Patient denies delusions. Patient does not appear to be attending to internal stimuli. Patients attention and concentration are fair. Patient is oriented to person , place, time. Patients insight and judgment are poor, and appears to be a fair historian. Patient has no apparent dysfunction in recent or remote memory noted, and no evidence of gross cognitive dysfunction noted at any point during the interview. - Time Spent With Patient Time Spent With Patient: 15 minutes, met with patient individually. - Pending Discharge Pending Discharge Within 24 Hours: No Pending Discharge Within 48 Hours: No ICD10 Worksheet Patient Problems: Problems Problem Status Onset Major depressive disorder, recurrent episode, severe with anxious distress Chronic
--- NOTE | 2018-05-16 09:07 | HOSPPROG ---
Hospitalist Progress Note Assessment/Plan: 63 yo M w nocturia: nocturia: likely 2/2 bph reasonable to try alpha chapis- never has start flomax dc norvasc hematuria: notes episodes of hematuria in past, none recently has been worked up, per pt htn: follow bp on flomax (this has antihypertensive effect) Subjective: asked to see in follow up for nightime urination. per patient has been going on for "years". not worse here. no burning/irritation/urgency/LE edema Objective: Vital Signs Temp Pulse Resp BP Pulse Ox 36.3 C 65 20 149/75 H 97 05/16/18 06:00 05/16/18 06:00 05/15/18 06:40 05/16/18 07:50 05/16/18 06:00 - Physical Exam Constitutional: no apparent distress, appears nourished Eyes: PERRL, anicteric sclera Ears, Nose, Mouth, Throat: moist mucous membranes, hearing normal Cardiovascular: regular rate and rhythym, no murmur, rub, or gallop Respiratory: no respiratory distress, no rales or rhonchi Gastrointestinal: normoactive bowel sounds, soft, non-tender abdomen Genitourinary: no bladder fullness, No nicholson in urethra Skin: warm, normal color Musculoskeletal: full muscle strength Neurologic: AAOx3 ICD10 Worksheet Patient Problems: Problems Problem Status Onset Major depressive disorder, recurrent episode, severe with anxious distress Chronic
[2018-05-16] MEDS ORDERED: CHOLECALCIFEROL VIT D3 1,000 UNITS TAB PO ONE (09:12)
[2018-05-16] MEDS: TAMSULOSIN HCL 0.4 MG CAP PO SCH (09:34)
[2018-05-16] MEDS: MIRTAZAPINE 15 MG TAB PO SCH (21:11)
[2018-05-17] MEDS: LORazepam 1 MG TAB PO PRN ×2 (06:35→12:40)
--- NOTE | 2018-05-17 06:59 | SOAPPROG ---
SOAP Progress Note Assessment/Plan: Assessment: Major Depressive Disorder with Anxious Distress, Cannabis Use Disorder, Severe. No improvement noted. (see subjective/objective note). Patient could benefit from continued inpatient hospitalization for crisis stabilization, safety, and medication evaluation. Plan: 1. Psychotropic medications: After reviewing options, risks, and benefits patient agrees to continue current medications. No other medication changes at this time as more time is needed to determine ongoing tolerability and efficacy. Plan is to continue to observe patient for response and side effects from medications, and ongoing monitoring and evaluation. 2. Review with patient informed consent and recommendations for psychotropic medication treatment listed below 3. Labs: no additional labs at this time 4. Therapy: continue milieu and group therapy 5. Further investigation including gathering information from patients relatives and review of past case records to inform treatment plan. 6. Safety/Wellness plan and follow-up outpatient appointments to be established prior to discharge. Next steps are for patient to meet with healthcare recruiter to plan a safe discharge plan and establish outpatient services for ongoing treatment. 7. Confer with inpatient treatment team regarding treatment plan. 8. Psychosocial stressors addressed through case packer and sealer 9. Legal status: voluntary 10. Consider discharge when patient is in stable condition, safe, and has a safe discharge plan. 11. Substance abuse intervention: cannabis PSYCHOTROPIC MEDICATION TREATMENT INFORMED CONSENT and RECOMMENDATIONS: Review nature of condition, diagnosis, and prognosis. Review nature and purpose of psychotropic medication treatment. Review type of psychotropic medications being ordered. Review risk and benefits of psychotropic medication treatment. Review probable length of time patient will need to take medications. Review risk and benefits of not undergoing psychotropic medication treatment. Review alternative treatments to psychotropic medications. Review psychotropic medications contraindications, drug-drug interactions, side effects, and importance of reporting any side effects to a psychiatric provider or nurse during inpatient hospitalization, and upon discharge to patients psychiatric outpatient provider, primary care provider, or other health director of healthcare systems. Review importance of asking a nurse, psychiatric provider, or primary care provider any questions or problems concerning the psychotropic medications. Verify patient understands the information that has been provided, and understands, accepts, and agrees to psychotropic medications. Review patients safety plan and importance of patient to report to staff while hospitalized if patient is ever a danger to self/others, or unable to care for self, and upon discharge, the importance for patient to contact [facility] or [facility], or go to the nearest emergency room, if patient is ever a danger to self/others, or unable to care for self. Recommend that upon discharge patient establish medication management treatment with a psychiatric provider, establishes routine therapy appointments, and follow-up with primary care provider. Verify patient understands and agrees to these recommendations. 05/17/18 06:57 Subjective: Following up with patient for evaluation of depression, anxiety, and safety. Patient reports, "Just so anxious, didn't sleep last night, up every 20 minutes to go to the bathroom. I took Flomax. Just took an Ativan, cant calm down. So tired. Need to get some sleep." Patient expresses the following psychiatric symptoms severe anxiety. Patient reports taking medications as prescribed, and describes response to medications as poor. Patient does not report undesirable side effects from the medications, and agrees to continue current medications. Patient reports he did not sleep well last night, and reports being tired and anxious this morning. Patient reports he is currently looking into housing options for after discharge. Objective: Vital Signs Temp Pulse Resp BP Pulse Ox 36.3 C 65 20 149/75 H 97 05/16/18 06:00 05/16/18 06:00 05/15/18 06:40 05/16/18 07:50 05/16/18 06:00 NURSING REPORT: Consulted with nursing for update on patients progress in treatment. Nurses report patient is engaged in treatment, is attending groups, slept 6 hours; was up a few times throughout the night; staff reports patient was not up every 20 minutes as reported by patient; expresses the following psychiatric symptoms: severe anxiety, exhibits the following psychiatric symptoms: anxious, irritable/agitated at times; is eating all meals, is agreeable to medications and taking as prescribed with no report of side effects , with no s/s of EPS/akathisia, and denies SI/HI, denies A/V hallucinations, and denies delusions. SUBSTANCE ABUSE BRIEF INTERVENTION: Brief intervention regarding the risks of cannabis abuse is provided to patient with goal to reduce the risk of harm that could result from the continued use of cannabis, with the general aim to investigate the problem, raise awareness of problem, develop a solution with the patient, recommend a specific change or activity, and motivate the patient toward change. Assess substance abuse behavior and give supportive advice about harm reduction, recommend a reduction in hazardous/at-risk consumption patterns, and facilitate referrals for additional specialized treatment with resident care technician. Intermediate goal is for the patient to quit and attend outpatient substance abuse treatment. Intervention focus on intermediate goals to allow for more immediate success in the treatment process to keep the patient motivated. Review following with patient: Cannabis use risks: Short- term use: impaired short-term memory, impaired motor coordination, altered judgement, in high doses paranoia and psychosis. Long-term use addiction, diminished life satisfaction and achievement, symptoms of chronic bronchitis, and increased risk of chronic psychosis disorders if predisposition to such disorders. In withdrawal anger, aggression irritability, anxiety and nervousness, decreased appetite or weight loss, restlessness, and sleep difficulties with strange dreams. OUTPATIENT SUBSTANCE ABUSE TREATMENT: Patient referred to outpatient provider and treatment for continued treatment related to substance abuse. MSE: The patient is an under-nourished male looking stated chronological age. Attire is appropriate and dress is casual. Grooming status is inappropriate and disheveled. Ambulation is independent. Gait is normal and coordinated. Posture is normal and relaxed. Eye contact is inappropriate and avoided. Motor activity is appropriate with purposeful, organized, coordinated movements ; with no involuntary movements. Attitude is fairly cooperative. Patient appears attentive and does relate well to this interviewer. Language production is spontaneous. Rate is hesitant, latency of response is prolonged, volume is low. Amount is sparse. Articulation is clear. Patient reports mood as okay with incongruent and flat affect. Patients thought process is linear with no signs of thought disorder. Patient denies suicidal thoughts, denies homicidal ideation. Patient denies auditory, visual hallucinations. Patient denies delusions. Patient does not appear to be attending to internal stimuli. Patients attention and concentration are fair. Patient is oriented to person , place, time. Patients insight and judgment are poor, and appears to be a fair historian. Patient has no apparent dysfunction in recent or remote memory noted, and no evidence of gross cognitive dysfunction noted at any point during the interview. - Time Spent With Patient Time Spent With Patient: 15 minutes, met with patient individually. - Pending Discharge Pending Discharge Within 24 Hours: No Pending Discharge Within 48 Hours: No ICD10 Worksheet Patient Problems: Problems Problem Status Onset Major depressive disorder, recurrent episode, severe with anxious distress Chronic
--- NOTE | 2018-05-17 07:39 | ASMTBHDC ---
Notes Note: Notes: CC was not able to confirm client's discharge however, was able to provide additional resources: Follow up with: [facility] [address], [address] [place] [address] Next Appt: Client to follow up; CC tried several times to out-reach with no return contact [facility] [address] [place] [address] Follow-up: Walk-in Appt/Time/Dates This is for the initial 30 minute appt to do paperwork and Ct should bring ID, insurance card, etc. [place] office: [address] [place] [address] Mon, Wed, and Fri 8:30am-2pm. [place] office: [address], [place] [address] Mon. and Wed., 9 am-2 pm [place] office: [address] [facility], 2nd floor (adults), [place] [address] Mon-Fri., 9 am-2 pm Date Signed: 05/17/2018 07:39 AM Electronically Signed By:Samy Balderas
[2018-05-17] MEDS: TAMSULOSIN HCL 0.4 MG CAP PO SCH (09:10)
[2018-05-17] MEDS: GABAPENTIN 300 MG CAP PO SCH ×4 (09:10→21:26)
[2018-05-17] MEDS: CHOLECALCIFEROL VIT D3 2,000 UNITS TAB/CAP PO SCH (09:10)
--- NOTE | 2018-05-17 13:10 | SOAPPROG ---
SOAP Progress Note Assessment/Plan: Assessment: Pelvic/abdominal pain, unclear etiology. * Bladder scan with volume in the 200s. Unlikely that urinary retention is causing pain. * Lipase with insignificant elevation. CBC is normal. Abdominal x-ray is without significant abnormalities. * Observe for resolution. HTN: elevated BP this morning may be due to urinary retention. Continue amlodipine. 05/18/18 13:00 Subjective: ATSP re pelvic pain. Recently started on tamsulosin for nocturia amd urinary frequency, which have worsened since admission. He says he urinated 14 times, small quantities, in the past day. He has lower abdominal discomfort. Denies f /c, n/v/c/d, dysuria, testicular pain. Objective: Vital Signs Temp Pulse Resp BP Pulse Ox 36.8 C 66 18 146/80 H 97 05/17/18 12:47 05/17/18 12:47 05/17/18 12:47 05/17/18 12:47 05/17/18 12:47 Physical Exam - Physical Exam General Appearance: WD/WN, alert, moderate distress Respiratory: No respiratory distress, No accessory muscle use Abdomen: other (Does not relax abdominal muscles to allow deep palpation. Very tender anterior pelvis/lower abdoman.) ICD10 Worksheet Patient Problems: Problems Problem Status Onset Cannabis use disorder, severe, dependence Acute Major depressive disorder, recurrent episode, severe with anxious distress Chronic
[2018-05-17 15:52] LABS: PLATELET COUNT 224 10^3/uL (150-400)
[2018-05-17] MEDS: MIRTAZAPINE 15 MG TAB PO SCH (21:26)
[2018-05-18] MEDS: LORazepam 1 MG TAB PO PRN ×2 (06:00→12:12)
--- NOTE | 2018-05-18 08:11 | SOAPPROG ---
SOAP Progress Note Assessment/Plan: Assessment: Major Depressive Disorder with Anxious Distress, Cannabis Use Disorder, Severe. No improvement noted. (see subjective/objective note). Patient could benefit from continued inpatient hospitalization for crisis stabilization, safety, and medication evaluation. Plan: 1. Psychotropic medications: After reviewing options, risks, and benefits patient agrees to continue current medications, and agrees to increase Gabapentin to 800 mg TID. No other medication changes at this time as more time is needed to determine ongoing tolerability and efficacy. Plan is to continue to observe patient for response and side effects from medications, and ongoing monitoring and evaluation. 2. Review with patient informed consent and recommendations for psychotropic medication treatment listed below 3. Labs: no additional labs at this time 4. Therapy: continue milieu and group therapy 5. Further investigation including gathering information from patients relatives and review of past case records to inform treatment plan. 6. Safety/Wellness plan and follow-up outpatient appointments to be established prior to discharge. Next steps are for patient to meet with women's health care nurse practitioner to plan a safe discharge plan and establish outpatient services for ongoing treatment. 7. Confer with inpatient treatment team regarding treatment plan. 8. Psychosocial stressors addressed through corrections caseworker 9. Legal status: voluntary 10. Consider discharge when patient is in stable condition, safe, and has a safe discharge plan. 11. Substance abuse intervention: cannabis PSYCHOTROPIC MEDICATION TREATMENT INFORMED CONSENT and RECOMMENDATIONS: Review nature of condition, diagnosis, and prognosis. Review nature and purpose of psychotropic medication treatment. Review type of psychotropic medications being ordered. Review risk and benefits of psychotropic medication treatment. Review probable length of time patient will need to take medications. Review risk and benefits of not undergoing psychotropic medication treatment. Review alternative treatments to psychotropic medications. Review psychotropic medications contraindications, drug-drug interactions, side effects, and importance of reporting any side effects to a psychiatric provider or nurse during inpatient hospitalization, and upon discharge to patients psychiatric outpatient provider, primary care provider, or other health palliative care coordinator. Review importance of asking a nurse, psychiatric provider, or primary care provider any questions or problems concerning the psychotropic medications. Verify patient understands the information that has been provided, and understands, accepts, and agrees to psychotropic medications. Review patients safety plan and importance of patient to report to staff while hospitalized if patient is ever a danger to self/others, or unable to care for self, and upon discharge, the importance for patient to contact [facility] or [facility], or go to the nearest emergency room, if patient is ever a danger to self/others, or unable to care for self. Recommend that upon discharge patient establish medication management treatment with a psychiatric provider, establishes routine therapy appointments, and follow-up with primary care provider. Verify patient understands and agrees to these recommendations. 05/18/18 08:11 Subjective: Following up with patient for evaluation of depression, anxiety, and safety. Patient reports, "Just don't feel well. Hopeless. Don't think I belong on this Earth." Patient expresses the following psychiatric symptoms severe anxiety and depression. Patient reports taking medications as prescribed, and describes response to medications as poor. Patient does not report undesirable side effects from the medications, and agrees to continue current medications. Patient agrees to increase Gabapentin to 800 mg po TID. Objective: Vital Signs Temp Pulse Resp BP Pulse Ox 36.5 C 59 L 20 141/86 H 96 05/18/18 06:00 05/18/18 06:00 05/18/18 06:00 05/18/18 06:00 05/18/18 06:00 Laboratory Results 05/17/18 14:10 NURSING REPORT: Consulted with nursing for update on patients progress in treatment. Nurses report patient is engaged in treatment, is attending groups, slept 6 hours; was up a few times throughout the night; staff reports patient was not up every 20 minutes as reported by patient; expresses the following psychiatric symptoms: severe anxiety, exhibits the following psychiatric symptoms: anxious, irritable/agitated at times; is eating all meals, is agreeable to medications and taking as prescribed with no report of side effects , with no s/s of EPS/akathisia, and denies SI/HI, denies A/V hallucinations, and denies delusions. SUBSTANCE ABUSE BRIEF INTERVENTION: Brief intervention regarding the risks of cannabis abuse is provided to patient with goal to reduce the risk of harm that could result from the continued use of cannabis, with the general aim to investigate the problem, raise awareness of problem, develop a solution with the patient, recommend a specific change or activity, and motivate the patient toward change. Assess substance abuse behavior and give supportive advice about harm reduction, recommend a reduction in hazardous/at-risk consumption patterns, and facilitate referrals for additional specialized treatment with pharmacy customer care specialist. Intermediate goal is for the patient to quit and attend outpatient substance abuse treatment. Intervention focus on intermediate goals to allow for more immediate success in the treatment process to keep the patient motivated. Review following with patient: Cannabis use risks: Short- term use: impaired short-term memory, impaired motor coordination, altered judgement, in high doses paranoia and psychosis. Long-term use addiction, diminished life satisfaction and achievement, symptoms of chronic bronchitis, and increased risk of chronic psychosis disorders if predisposition to such disorders. In withdrawal anger, aggression irritability, anxiety and nervousness, decreased appetite or weight loss, restlessness, and sleep difficulties with strange dreams. OUTPATIENT SUBSTANCE ABUSE TREATMENT: Patient referred to outpatient provider and treatment for continued treatment related to substance abuse. MSE: The patient is an under-nourished male looking stated chronological age. Attire is appropriate and dress is casual. Grooming status is inappropriate and disheveled. Ambulation is independent. Gait is normal and coordinated. Posture is normal and relaxed. Eye contact is inappropriate and avoided. Motor activity is appropriate with purposeful, organized, coordinated movements ; with no involuntary movements. Attitude is fairly cooperative. Patient appears attentive and does relate well to this interviewer. Language production is spontaneous. Rate is hesitant, latency of response is prolonged, volume is low. Amount is sparse. Articulation is clear. Patient reports mood as okay with incongruent and flat affect. Patients thought process is linear with no signs of thought disorder. Patient denies suicidal thoughts, denies homicidal ideation. Patient denies auditory, visual hallucinations. Patient denies delusions. Patient does not appear to be attending to internal stimuli. Patients attention and concentration are fair. Patient is oriented to person , place, time. Patients insight and judgment are poor, and appears to be a fair historian. Patient has no apparent dysfunction in recent or remote memory noted, and no evidence of gross cognitive dysfunction noted at any point during the interview. - Time Spent With Patient Time Spent With Patient: 15 minutes, met with patient individually. - Pending Discharge Pending Discharge Within 24 Hours: No Pending Discharge Within 48 Hours: No ICD10 Worksheet Patient Problems: Problems Problem Status Onset Major depressive disorder, recurrent episode, severe with anxious distress Chronic
[2018-05-18] MEDS ORDERED: GABAPENTIN 400 MG CAP PO SCH (08:12)
[2018-05-18] MEDS: TAMSULOSIN HCL 0.4 MG CAP PO SCH (08:45)
[2018-05-18] MEDS: CHOLECALCIFEROL VIT D3 2,000 UNITS TAB/CAP PO SCH (08:45)
[2018-05-18] MEDS: GABAPENTIN 300 MG CAP PO SCH ×3 (09:23→21:29)
--- NOTE | 2018-05-18 12:59 | ASMTBHDC ---
Notes Note: Notes: This sba underwriter and the patient discussed the patient's discharge plan. He agreed to coordinate with his friend, Tobi, for transportation and the remainder of his belongings. The patient was observed later in his room whimpering and shaking. The patient received medication intervention and was supporting to engage in breath work as a coping mechanism. This sba underwriter contacted [facility] to coordinate outpatient care for the patient; voicemail left. Date Signed: 05/18/2018 12:57 PM Electronically Signed By:Maribel Hannon
[2018-05-18] MEDS: MIRTAZAPINE 15 MG TAB PO SCH (21:29)
[2018-05-19] MEDS ORDERED: GABAPENTIN 300 MG CAP PO SCH (08:41)
--- NOTE | 2018-05-19 08:49 | SOAPPROG ---
SOAP Progress Note Assessment/Plan: Assessment: Major Depressive Disorder with Anxious Distress, Cannabis Use Disorder, Severe. No improvement noted. (see subjective/objective note). Patient could benefit from continued inpatient hospitalization for crisis stabilization, safety, and medication evaluation. Plan: 1. Psychotropic medications: After reviewing options, risks, and benefits patient agrees to continue current medications, and agrees to decrease Gabapentin to 400 mg TID. No other medication changes at this time as more time is needed to determine ongoing tolerability and efficacy. Plan is to continue to observe patient for response and side effects from medications, and ongoing monitoring and evaluation. 2. Review with patient informed consent and recommendations for psychotropic medication treatment listed below 3. Labs: no additional labs at this time 4. Therapy: continue milieu and group therapy 5. Further investigation including gathering information from patients relatives and review of past case records to inform treatment plan. 6. Safety/Wellness plan and follow-up outpatient appointments to be established prior to discharge. Next steps are for patient to meet with acute care physical therapist to plan a safe discharge plan and establish outpatient services for ongoing treatment. 7. Confer with inpatient treatment team regarding treatment plan. 8. Psychosocial stressors addressed through [employer] 9. Legal status: voluntary 10. Consider discharge when patient is in stable condition, safe, and has a safe discharge plan. 11. Substance abuse intervention: cannabis PSYCHOTROPIC MEDICATION TREATMENT INFORMED CONSENT and RECOMMENDATIONS: Review nature of condition, diagnosis, and prognosis. Review nature and purpose of psychotropic medication treatment. Review type of psychotropic medications being ordered. Review risk and benefits of psychotropic medication treatment. Review probable length of time patient will need to take medications. Review risk and benefits of not undergoing psychotropic medication treatment. Review alternative treatments to psychotropic medications. Review psychotropic medications contraindications, drug-drug interactions, side effects, and importance of reporting any side effects to a psychiatric provider or nurse during inpatient hospitalization, and upon discharge to patients psychiatric outpatient provider, primary care provider, or other health career services director. Review importance of asking a nurse, psychiatric provider, or primary care provider any questions or problems concerning the psychotropic medications. Verify patient understands the information that has been provided, and understands, accepts, and agrees to psychotropic medications. Review patients safety plan and importance of patient to report to staff while hospitalized if patient is ever a danger to self/others, or unable to care for self, and upon discharge, the importance for patient to contact [facility] or [facility], or go to the nearest emergency room, if patient is ever a danger to self/others, or unable to care for self. Recommend that upon discharge patient establish medication management treatment with a psychiatric provider, establishes routine therapy appointments, and follow-up with primary care provider. Verify patient understands and agrees to these recommendations. 05/19/18 08:48 Subjective: Following up with patient for evaluation of depression, anxiety, and safety. Patient reports, "Feeling better. Slept better." Patient expresses the following psychiatric symptoms severe anxiety and depression. Patient reports taking medications as prescribed, and describes response to medications as fair. Patient reports feeling sedated after current Gabapentin dose, and requests dose to be lowered. Patient agrees to lower Gabapentin to 400 mg po TID. Objective: Vital Signs Temp Pulse Resp BP Pulse Ox 37.1 C 60 16 153/72 H 97 05/19/18 06:00 05/19/18 06:00 05/19/18 06:00 05/19/18 06:00 05/19/18 06:00 Laboratory Results 05/17/18 14:10 NURSING REPORT: Consulted with nursing for update on patients progress in treatment. Nurses report patient is engaged in treatment, is attending groups, slept 8 hours; expresses the following psychiatric symptoms: severe anxiety, exhibits the following psychiatric symptoms: anxious; is eating all meals, is agreeable to medications and taking as prescribed with no report of side effects , with no s/s of EPS/akathisia, and denies SI/HI, denies A/V hallucinations, and denies delusions. SUBSTANCE ABUSE BRIEF INTERVENTION: Brief intervention regarding the risks of cannabis abuse is provided to patient with goal to reduce the risk of harm that could result from the continued use of cannabis, with the general aim to investigate the problem, raise awareness of problem, develop a solution with the patient, recommend a specific change or activity, and motivate the patient toward change. Assess substance abuse behavior and give supportive advice about harm reduction, recommend a reduction in hazardous/at-risk consumption patterns, and facilitate referrals for additional specialized treatment with health care analyst. Intermediate goal is for the patient to quit and attend outpatient substance abuse treatment. Intervention focus on intermediate goals to allow for more immediate success in the treatment process to keep the patient motivated. Review following with patient: Cannabis use risks: Short- term use: impaired short-term memory, impaired motor coordination, altered judgement, in high doses paranoia and psychosis. Long-term use addiction, diminished life satisfaction and achievement, symptoms of chronic bronchitis, and increased risk of chronic psychosis disorders if predisposition to such disorders. In withdrawal anger, aggression irritability, anxiety and nervousness, decreased appetite or weight loss, restlessness, and sleep difficulties with strange dreams. OUTPATIENT SUBSTANCE ABUSE TREATMENT: Patient referred to outpatient provider and treatment for continued treatment related to substance abuse. MSE: The patient is an under-nourished male looking stated chronological age. Attire is appropriate and dress is casual. Grooming status is inappropriate and disheveled. Ambulation is independent. Gait is normal and coordinated. Posture is normal and relaxed. Eye contact is inappropriate and avoided. Motor activity is appropriate with purposeful, organized, coordinated movements ; with no involuntary movements. Attitude is fairly cooperative. Patient appears attentive and does relate well to this interviewer. Language production is spontaneous. R/R/V normal. Articulation is clear. Patient reports mood as okay with incongruent and flat affect. Patients thought process is linear and logical with no signs of thought disorder. Patient denies suicidal thoughts, denies homicidal ideation. Patient denies auditory, visual hallucinations. Patient denies delusions. Patient does not appear to be attending to internal stimuli. Patients attention and concentration are fair. Patient is oriented to person, place, time. Patients insight and judgment are poor, and appears to be a fair historian. Patient has no apparent dysfunction in recent or remote memory noted, and no evidence of gross cognitive dysfunction noted at any point during the interview. - Time Spent With Patient Time Spent With Patient: 15 minutes, met with patient individually. - Pending Discharge Pending Discharge Within 24 Hours: No Pending Discharge Within 48 Hours: No ICD10 Worksheet Patient Problems: Problems Problem Status Onset Cannabis use disorder, severe, dependence Acute Major depressive disorder, recurrent episode, severe with anxious distress Chronic
[2018-05-19] MEDS: TAMSULOSIN HCL 0.4 MG CAP PO SCH (09:12)
[2018-05-19] MEDS: GABAPENTIN 400 MG CAP PO SCH ×3 (09:12→20:56)
[2018-05-19] MEDS: CHOLECALCIFEROL VIT D3 2,000 UNITS TAB/CAP PO SCH (09:12)
[2018-05-19] MEDS ORDERED: clonazePAM 0.5 MG TAB PO PRN ×2 (11:19→11:29)
[2018-05-19] MEDS: clonazePAM 0.5 MG TAB PO PRN (11:42)
--- NOTE | 2018-05-19 13:25 | ASMTBHDC ---
Notes Note: Notes: This screen writer confirmed a follow up appointment for outpatient therapy at [facility]. The patient is scheduled to see Magdalena Park on May, @ 14:00. He reported "feeling better" as evidenced by receiving "PRN" medication. He expressed worry that he is "treating the symptoms" rather than "an underlying condition." The patient discussed with this screen writer the importance of abstaining from substance use/abuse, connecting with community resources, and adherence to recommended medication regimen upon discharge in order to sustain recovery and prevent relapse. Date Signed: 05/19/2018 01:25 PM Electronically Signed By:Maribel Hannon
[2018-05-19] MEDS: MIRTAZAPINE 15 MG TAB PO SCH (20:56)
[2018-05-20] MEDS: clonazePAM 0.5 MG TAB PO PRN ×2 (05:20→14:40)
[2018-05-20] MEDS: TAMSULOSIN HCL 0.4 MG CAP PO SCH (08:38)
[2018-05-20] MEDS: GABAPENTIN 400 MG CAP PO SCH ×3 (08:38→22:13)
[2018-05-20] MEDS: CHOLECALCIFEROL VIT D3 2,000 UNITS TAB/CAP PO SCH (08:38)
[2018-05-20] MEDS ORDERED: IBUPROFEN 200 MG TAB PO PRN (08:56)
--- NOTE | 2018-05-20 16:09 | ASMTCMCOM ---
CM Note CM Note Notes: Pt. reports his back hurting. Pt. stated he is "feeling pretty down, pretty hopeless". Pt. stated "feel like my brain is broken". Pt. stated he slept "alright, on and off, had dreams, some bad". When asked about his medications, pt stated "just don't know if contributing more to my depression". Pt. stated "everytime I eat breakfast my heart starts racing...maybe it's the coffee". Pt. stated his sister is considering an Airbnb for pt. Pt. stated "nothings changed", adding "only medicine that works for me is cannabis". Pt. stated ketamine helped when he was feeling suicidal. Pt. stated he is angry with his exg-irlfriend, Roz. Pt. stated he is "tired of living this way". Pt. stated he doesn't want to smoke THC, stating he wants THC/CBD pills to take instead of smoking pot. Pt. stated he doesn't want to be on klonopin or ativan due to "the major issues that come with them". Pt. became tearful stating he wants to shave. Pt. stated he has a "major trauma issues that was never dealt with that's now running the show". Pt. asked to speak to CC in his room for more privacy. Pt. stated he doesn't feel he can fully talk with his therapist Magdalena. Pt. shared he has been "ashamed" of his sexual preferences his whole life, adding they may be an underlying reason for his current condition. While pt. was sharing with CC, he wanted to close his door, CC stated it had to stay open. While sharing, pt believe a peer pt was eavesdropping and laughing at him. At one point, pt moved quickly towards peer pt, when CC intervened and told pt to take a minute in his room, while CC spoke to peer pt. Pt. presents as alert, distressed, whimpering, inconsistent eye contact, flopping over at times on to a table, labile with peer pt., angry and aggressive at one point, and somewhat cooperative. Staff report pt. sleeping 9 hours and being medication complaint. CC spoke with pt's sister, Cullen ([phone]) who stated she found the pt a private Airbnb room in a house in [place], adding he would have a private room, but shared common areas. SOC stated pt became upset about possibly stating at this Airbnb and having to interact with people. SOC stated pt's ex-girlfriend, Roz offered for pt. to stay with her in [place]. SOC stated pt's car is in the [facility] parking lot. SOC stated she will be leaving the country for two weeks beginning Tuesday afternoon. Pt. has an appointment with Magdalena Park on 05/23/18 at 1400 CC provided pt. with a [employer] discount card Date Signed: 05/20/2018 04:09 PM Electronically Signed By:Silvana Rader
--- NOTE | 2018-05-20 17:13 | SOAPPROG ---
SOAP Progress Note Assessment/Plan: Assessment: Per Mickey Adams's note: Major Depressive Disorder with Anxious Distress, Cannabis Use Disorder, Severe. No improvement noted. (see subjective/objective note). Patient could benefit from continued inpatient hospitalization for crisis stabilization, safety, and medication evaluation. Plan: 1. Psychotropic medications: After reviewing options, risks, and benefits patient agrees to continue current medications, and agrees to decrease Gabapentin to 400 mg TID. No other medication changes at this time as more time is needed to determine ongoing tolerability and efficacy. Plan is to continue to observe patient for response and side effects from medications, and ongoing monitoring and evaluation. WEEKEND PLAN: 05/20/18 17:09 1. Patient tolerating meds well without any complaint. He is taking Gabapentin 400mg TID for anxiety. 2. Patient feels "hopeless" about his housing situation. SOC would like patient to move into [facility] for a few weeks. CC spoke to SOC today about discharge planning. 3. Patient slept 9 hrs last night and has been eating 50-100% of all meals. 4. Patient will likely d/c on Tuesday. Subjective: Patient says he feels "hopeless" b/c he doesn't have anywhere to live. He perseverates on losing his inheritance b/c he gave most of it away. Now he doesn 't have financial means to support himself. His SOC is wiling to help him out. She told CC today she would pay for patient to stay at [facility] for several weeks with roommates. Patient isn't sure he wants to do this. Patient doesn't have any other options at this point except a detention. Patient admits he is sleeping "OK" and has good appetite in hospital. He denies any SI/HI. Objective: Vital Signs Temp Pulse Resp BP Pulse Ox 36.3 C 72 14 130/80 H 94 05/20/18 06:00 05/20/18 06:00 05/20/18 06:00 05/20/18 06:00 05/20/18 06:00 Laboratory Results 05/17/18 14:10 MSE: Affect: Tearful at times Mood: "Hopeless" TP: Linear TC: Denies SI/HI Insight/Judgment: Poor - Time Spent With Patient Time Spent With Patient: 15" - Pending Discharge Pending Discharge Within 24 Hours: No Pending Discharge Within 48 Hours: Yes Pending Discharge Date: 05/22/18 (Likely d/c on Tuesday) Pending Discharge Time: 11:00 ICD10 Worksheet Patient Problems: Problems Problem Status Onset Cannabis use disorder, severe, dependence Acute Major depressive disorder, recurrent episode, severe with anxious distress Chronic
[2018-05-20] MEDS: MIRTAZAPINE 15 MG TAB PO SCH (22:13)
[2018-05-21] MEDS: clonazePAM 0.5 MG TAB PO PRN (05:30)
[2018-05-21] MEDS: GABAPENTIN 400 MG CAP PO SCH ×3 (09:11→20:44)
[2018-05-21] MEDS: CHOLECALCIFEROL VIT D3 2,000 UNITS TAB/CAP PO SCH (09:14)
[2018-05-21] MEDS: TAMSULOSIN HCL 0.4 MG CAP PO SCH (09:16)
[2018-05-21] MEDS: NICOTINE POLACRILEX 2 MG GUM B PRN (09:48)
--- NOTE | 2018-05-21 18:17 | SOAPPROG ---
SOAP Progress Note Assessment/Plan: Assessment: Per Mickey Adams's note: Major Depressive Disorder with Anxious Distress, Cannabis Use Disorder, Severe. No improvement noted. (see subjective/objective note). Patient could benefit from continued inpatient hospitalization for crisis stabilization, safety, and medication evaluation. Plan: 1. Psychotropic medications: After reviewing options, risks, and benefits patient agrees to continue current medications, and agrees to decrease Gabapentin to 400 mg TID. No other medication changes at this time as more time is needed to determine ongoing tolerability and efficacy. Plan is to continue to observe patient for response and side effects from medications, and ongoing monitoring and evaluation. WEEKEND PLAN: 05/20/18 17:09 1. Patient tolerating meds well without any complaint. He is taking Gabapentin 400mg TID for anxiety. 2. Patient feels "hopeless" about his housing situation. SOC would like patient to move into [facility] for a few weeks. CC spoke to SOC today about discharge planning. 3. Patient slept 9 hrs last night and has been eating 50-100% of all meals. 4. Patient will likely d/c on Tuesday. 05/21/18 18:14 1. Patient feeling anxious and irritable today. He's angry with SOC for leaving for vacation to [facility] this week. 2. Patient thinks Remeron is making him more irritable. Given he feels angry at his SOC, it's difficult to point to medication as source of his irritability. He agreed to continue with med. 3. Patient eating and sleeping very well. 4. CC gave patient information about PATH program through [facility]. 5. Likely to d/c tomorrow. Subjective: Patient's sister has located a room for rent through [facility] while she is gone on vacation to [facility]. Patient says he's not sure if he wants to stay in [facility] and declined to make the reservation when given opportunity by staff to use computer today. Patient told CC "I get anxious, then I get angry." He says he's upset with his SOC for going to [facility] at this time. He understands his SOC has her own life and is trying to help him as best she can. However, patient would like more assistance from others because he finds it difficult to take care of responsibilities himself. CC gave patient information about the PATH program through [facility] in case he chooses not to stay at [facility]. Patient feels nervous about leaving the hospital, but does not have thoughts, plan or intent to hurt himself or anyone else. He acknowledges that he doesn't meet criteria to be in hospital and knows he has resources available to him outside the hospital. Objective: Vital Signs Temp Pulse Resp BP Pulse Ox 36.5 C 60 15 140/84 H 96 05/21/18 06:00 05/21/18 06:00 05/21/18 06:00 05/21/18 06:00 05/21/18 06:00 Laboratory Results 05/17/18 14:10 MSE: Affect: Labile, irritable at times Mood: "Anxious" "Angry" TP: Linear TC: Denies SI/HI Insight/Judgment: Poor - Time Spent With Patient Time Spent With Patient: 15" - Pending Discharge Pending Discharge Within 24 Hours: Yes Pending Discharge Date: 05/22/18 (D/C on Tuesday) Pending Discharge Time: 11:00 ICD10 Worksheet Patient Problems: Problems Problem Status Onset Cannabis use disorder, severe, dependence Acute Major depressive disorder, recurrent episode, severe with anxious distress Chronic
[2018-05-21] MEDS: MIRTAZAPINE 15 MG TAB PO SCH (20:44)
[2018-05-22] MEDS: clonazePAM 0.5 MG TAB PO PRN (05:16)
[2018-05-22 06:54] VITALS: BP 139/114
[2018-05-22] MEDS: GABAPENTIN 400 MG CAP PO SCH (08:47)
[2018-05-22] MEDS: TAMSULOSIN HCL 0.4 MG CAP PO SCH (08:47)
[2018-05-22] MEDS: CHOLECALCIFEROL VIT D3 2,000 UNITS TAB/CAP PO SCH (08:48)
--- NOTE | 2018-05-22 12:21 | BDS ---
[f rep st] BEHAVIORAL HEALTH DISCHARGE SUMMARY REASON FOR ADMISSION: From the ED note dated 05/12/2018, the patient arrived to the emergency department with his family for evaluation of declining mental health. The patient reported frequent suicidal thoughts, insomnia for several days. The patient was admitted involuntarily on an M1 hold due to being a danger to himself and was admitted for safety, crisis stabilization, and medication management. ADMITTING DIAGNOSES: 1. Cannabis use disorder, severe. 2. Cannabis-induced anxiety disorder and withdrawal. 3. Generalized anxiety disorder. 4. Homelessness. ADMISSION PHYSICAL EXAM: The patient was seen for history and physical consultation on 05/14/2018 for medical clearance for inpatient psychiatric hospitalization and treatment. The patient was medically cleared for inpatient psychiatric hospitalization and treatment. For further details, please refer to consultation note dated 05/14/2018. ADMISSION LABS: 1. CBC within normal limits. 2. BMP within normal limits except glucose was elevated at 121. 3. Hemoglobin A1c within normal limits at 5.6. 4. Liver function within normal limits. 5. Lipid panel within normal limits except cholesterol was elevated at 250, LDL cholesterol calculated was elevated at 165, non-HDL cholesterol was elevated at 185. 6. Lipase elevated at 318. 7. 25-OH vitamin D total was low at 23.9. 8. TSH was within normal limits at 2.020. 9. Toxicology screen non-negative for THC, negative for all other substances screened and negative for ethyl alcohol. MAJOR PROCEDURES OR TESTS: None. HOSPITAL COURSE: The most prominent symptoms and behaviors while the patient was here were severe anxiety. Treatment modalities utilized were milieu and group therapy. Gabapentin was started and titrated to 400 mg p.o. t.i.d. to target anxiety symptoms, was tolerated with no report of side effects and with good response. Remeron 15 mg p.o. q.h.s. was started to target mood symptoms and was tolerated with no report of side effects and with good response. Patient has improved considerably with no signs of psychiatric symptoms and no psychiatric symptoms expressed. Patient reports he has improved since admission , states to be in stable condition, feels safe to discharge, and he contracts for safety. Patients response to treatment was good. There were no adverse or unexpected results of treatment. The patient was safe throughout stay, active in treatment, engaged in groups, and was appropriate with staff. Patient met with treatment team prior to discharge to assess readiness to discharge and review discharge plan. The treatment team consensus is the patient in stable condition, has a safe discharge plan, and is ready to discharge today. CONDITION AT DISCHARGE: Patient is in stable condition and is no longer a danger to self or others, and is not gravely disabled due to mental illness. Patient is no longer in need of inpatient level of care, and can be safely and effectively treated within the community. The patients level of risk at time of discharge is low. MSE: The patient is casually dressed and with good hygiene , and looks stated age. Patient is sitting, posture is upright, and position is relaxed. Patient appears awake, alert, and responds appropriately and reasonably during interview. Patient is engaged, relates well to interviewer, and emotional facial expression is appropriate to situation and changes appropriately with topic. Patient is cooperative, makes comfortable eye contact , and movements are voluntary, deliberate, coordinated, and smooth and even with no inappropriate movements. Patient makes laryngeal sounds effortlessly and shares conversation appropriately; pace of conversation is appropriate, and stream of talking is fluent; articulation is clear and understandable; word choice is effortless and appropriate for education level; completes sentences, occasionally pausing to think; rate and volume are appropriate for interview and setting. Patient reports mood as euthymic. Patients affect is stable with full variable range, congruent with mood, and appropriate to speech and circumstances. Patient has linear and logical thinking, with no loose associations, tangential thought, thought blocking, concrete thinking, or any other signs of formal thought disorder. Patient denies suicidal and homicidal ideation, and denies hallucinations and delusions. Patient appears to be a reliable historian with sound judgement and good insight into current condition. Patient has no apparent dysfunction in recent or remote memory noted , and no evidence of gross cognitive dysfunction noted at any point during the interview. DISCHARGE DIAGNOSES: 1. Cannabis use disorder, severe. 2. Cannabis-induced anxiety disorder and withdrawal. 3. Generalized anxiety disorder. 4. Homelessness. CURRENT MEDICATIONS: After reviewing options, risks, and benefits with the patient, the patient agrees to continue: 1. Vitamin D3 at 1000 units p.o. daily. 2. Gabapentin 400 mg p.o. t.i.d. 3. Ibuprofen 400 mg p.o. q.6 hours p.r.n. 4. Melatonin 3-6 mg p.o. at bedtime p.r.n. 5. Remeron 15 mg p.o. at bedtime. 6. Flomax 0.4 mg p.o. daily. Patient requests prescriptions for these medications at time of discharge. Prescriptions for 30 days are provided. The prescriptions are reviewed with the patient at time of discharge to ensure accuracy and patient understanding. DISPOSITION: Patient left hospital independently and voluntarily and plans to stay in an [facility] in [place], [place]. FOLLOWUP: distance learning coordinator reports the appropriate outpatient follow-up services have been established and outpatient appointments have been scheduled. The patient received written instructions with times and dates of outpatient follow-up appointments. The following follow-up recommendations were provided to the patient at discharge: Continue psychotropic medications as prescribed and attend appointments as scheduled. Report any side effects to a psychiatric outpatient provider, a primary care provider, or other health home care provider. Address any questions or problems concerning the psychotropic medications with a psychiatric outpatient provider, a primary care provider, or other health home care provider. Contact [facility] or [facility], or go to the nearest emergency room, if you are ever a danger to yourself/others, or unable to care for yourself. As soon as possible, establish a routine medication management treatment with a psychiatric provider, establish routine therapy appointments, and follow-up with a primary care provider. SUBSTANCE ABUSE BRIEF INTERVENTION: Brief intervention regarding the risks of cannabis abuse is provided to patient with goal to reduce the risk of harm that could result from the continued use of cannabis, with the general aim to investigate the problem, raise awareness of problem, develop a solution with the patient, recommend a specific change or activity, and motivate the patient toward change. Assess substance abuse behavior and give supportive advice about harm reduction, recommend a reduction in hazardous/at-risk consumption patterns, and facilitate referrals for additional specialized treatment with career and guidance counselor. Intermediate goal is for the patient to quit and attend outpatient substance abuse treatment. Intervention focus on intermediate goals to allow for more immediate success in the treatment process to keep the patient motivated. Review following with patient: Cannabis use risks: Short- term use: impaired short-term memory, impaired motor coordination, altered judgement, in high doses paranoia and psychosis. Long-term use addiction, diminished life satisfaction and achievement, symptoms of chronic bronchitis, and increased risk of chronic psychosis disorders if predisposition to such disorders. In withdrawal anger, aggression irritability, anxiety and nervousness, decreased appetite or weight loss, restlessness, and sleep difficulties with strange dreams. OUTPATIENT SUBSTANCE ABUSE TREATMENT: Patient referred to outpatient provider and treatment for continued treatment related to substance abuse. LEGAL COURSE: The patient was admitted on an M1 hold for involuntary inpatient psychiatric hospitalization. The patient discharged today independently and voluntarily. ATTITUDE AT TIME OF DISCHARGE: The patients attitude was positive at time of discharge, and patient reports looking forward to discharging today. The patient reports he feels safe to discharge, is no longer a danger to himself or others, is in stable condition, and contracts for safety. Patient states he will continue medications as prescribed, and establish medication management treatment with an outpatient provider after discharge. Patient reports he understands the information that has been provided to him, and he understands, accepts, and agrees to psychotropic medications. Patient describes internal protective factors as the coping skills he has learned while hospitalized here, and he plans to continue to practice these coping skills after discharge. LABS AND RADIOLOGY STUDIES: There were no pending labs or studies at time of discharge. ADVANCE DIRECTIVES: There were no advance directives on file, and patient was full code during this hospitalization. The following psychotropic medication treatment informed consent and recommendations were provided to the patient at time of discharge. Patient reports he understands, accepts, and agrees to the information that has been provided. PSYCHOTROPIC MEDICATION TREATMENT INFORMED CONSENT and RECOMMENDATIONS: Review nature of condition, diagnosis, and prognosis. Review nature and purpose of psychotropic medication treatment. Review type of psychotropic medications being prescribed. Review risk and benefits of psychotropic medication treatment. Review probable length of time will need to take medications. Review risk and benefits of not undergoing psychotropic medication treatment. Review alternative treatments to psychotropic medications. Review psychotropic medications contraindications, side effects, and importance of reporting any side effects to a psychiatric provider, primary care provider, or other health home care provider. Review importance of asking a psychiatric provider or primary care provider any questions or problems concerning the psychotropic medications. Review safety plan and the importance to contact [facility] or [facility] , or go to the nearest emergency room, if ever a danger to yourself/others, or unable to care for yourself. Recommend upon discharge to establish routine medication management treatment with a psychiatric provider, establish routine therapy appointments, and follow-up with a primary care provider. Verify patient understands, accepts, and agrees to the information that has been provided. /[id number]
== END 2018-05-22 11:45 | disposition home or self-care (01) | DRG 897 ==
LOC: BBEH 05-13 19:30
PROVIDERS: ADMIT Psychiatry & Neurology Behavioral Neurology & Neuropsychiatry; ATTEND Psychiatry & Neurology Behavioral Neurology & Neuropsychiatry
DX: F12.980 Cannabis use, unspecified with anxiety disorder (principal); F12.93 Cannabis use, unspecified with withdrawal; E86.9 Volume depletion, unspecified; G47.00 Insomnia, unspecified; Z59.0 Homelessness
CPT/HCPCS: 80305; 82607-90; G0480